=== PATIENT | female | born 1995 ===

== ENCOUNTER 2018-07-17 16:10 | Emergency (ER) | payer SELFPAY ==
--- NOTE | 2018-07-17 16:29 | C.PDOC ---
History Of Present Illness 22-year-old female presents to the ED for evaluation after she accidentally sustained a laceration to her left thumb prior to arrival. Patient states that she was cutting some vegetables at home, when she accidentally injured her left thumb. She notes the bleeding was controlled right away. Patient states she is up to date with her vaccinations, and last received a tetanus immunization around two years ago. Otherwise, she denies any other injuries, snuffbox tenderness, extremity numbness/weakness, or active bleeding at this time. Time Seen by Provider: 07/17/18 16:28 Chief Complaint (Nursing): Abnormal Skin Integrity History Per: Patient History/Exam Limitations: no limitations Onset/Duration Of Symptoms: Hrs Current Symptoms Are (Timing): Still Present Location Of Injury: Left: Hand (thumb) Additional History Per: Patient Past Medical History Reviewed: Historical Data, Nursing Documentation, Vital Signs Vital Signs: Last Vital Signs Temp 98.6 F 07/17/18 16:21 Pulse 95 H 07/17/18 16:21 Resp 18 07/17/18 16:21 BP 123/69 07/17/18 16:21 Pulse Ox 100 07/17/18 16:21 - Medical History PMH: No Chronic Diseases Surgical History: No Surg Hx Family History: States: Unknown Family Hx - Social History Hx Alcohol Use: Yes Hx Substance Use: No - Immunization History Hx Tetanus Toxoid Vaccination: No Hx Influenza Vaccination: No Hx Pneumococcal Vaccination: No Review Of Systems Constitutional: Negative for: Fever, Chills Eyes: Negative for: Pain ENT: Negative for: Ear Pain, Ear Discharge, Nose Congestion Cardiovascular: Negative for: Chest Pain, Palpitations Respiratory: Negative for: Cough, SOB with Excertion Gastrointestinal: Negative for: Nausea, Vomiting, Abdominal Pain Genitourinary: Negative for: Dysuria, Frequency, Incontinence, Hematuria, Vaginal Discharge Musculoskeletal: Negative for: Neck Pain, Shoulder Pain, Arm Pain, Back Pain, Hand Pain, Leg Pain, Foot Pain, Other (snuff box tenderness ) Skin: Positive for: Other (laceration to left thumb) Neurological: Negative for: Weakness, Numbness Physical Exam - Physical Exam Appears: Well, Non-toxic, No Acute Distress Skin: Normal Color, Warm, Dry, Other (1.5cm laceration to palmar aspect if left thumb, along lateral margin. no active bleeding ) Head: Atraumatic, Normacephalic Eye(s): bilateral: Normal Inspection Tongue: Normal Appearing Lips: Normal Appearing Teeth: Normal Dentition Throat: Normal, No Erythema Neck: Supple Cardiovascular: Rhythm Regular Respiratory: Normal Breath Sounds Gastrointestinal/Abdominal: Normal Exam Back: Normal Inspection, No CVA Tenderness Extremity: Normal ROM, Capillary Refill (less than 2 seconds ) Neurological/Psych: Oriented x3, Normal Speech, Normal Cognition ED Course And Treatment O2 Sat by Pulse Oximetry: 100 (on RA) Pulse Ox Interpretation: Normal Laceration - Laceration Repair left thumb Wound Length (In cm): 1.5 Description Of Wound: Linear Anesthesia: Lidocaine 1% Wound Examination: Irrigated With Saline, No FB With Wound Exploration, No Tendon Injury With Wound Exploration Wound Closure: Suture (two) Suture Technique And Material Used: Nylon (4-0) Wound Complexity: Simple Medical Decision Making Medical Decision Making: Impression: 22 year old female with left thumb laceration without tendon involvement. N/V intact distally and proximally. No other pain. No snuffbox pain Plan: * Tylenol PO * laceration repair * reassess and disposition Progress: Tylenol PO given. Laceration repair procedure: 1.5cm linear laceration to scruggs aspect of left thumb, along lateral margin. Local anesthesia achieved with 1% lidocaine without epinephrine. Wound irrigated with NS and explored. No FB seen. No tendon injury. Two 4-0 interrupted Ethilon sutures placed. Pt tolerated well with minimal bleeding. On reassessment, patient is resting comfortably, showing no signs of distress and is stable for discharge. Patient is given wound care instructions and advised to follow up for suture removal in 7-10 days. Disposition - Disposition Referrals: [facility] [Outside] [facility] [Outside] [facility] [Outside] Disposition: HOME/ ROUTINE Disposition Time: 17:55 Condition: GOOD Additional Instructions: RETURN TO THIS ED OR TO THE CLINIC FOR SUTURE REMOVAL IN 7-10 DAYS KYARA MCKEON, thank you for letting us take care of you today. Your provider was Alfredo Barboza and you were treated for LT FINGER LACERATION. The emergency medical care you received today was directed at your acute symptoms. If you were prescribed any medication, please fill it and take as directed. It may take several days for your symptoms to resolve. Return to the Emergency Department if your symptoms worsen, do not improve, or if you have any other problems. Please contact your doctor or call one of the physicians/clinics you have been referred to that are listed on the Patient Visit Information form that is included in your discharge packet. Bring any paperwork you were given at discharge with you along with any medications you are taking to your follow up visit. Our treatment cannot replace ongoing medical care by a primary care provider outside of the emergency department. Thank you for allowing the [facility] team to be part of your care today. If you had an X-Ray or CT scan: A Radiologist will review the ED reading if any change in treatment is needed we will contact you. If you had a blood, urine, or wound culture: It will take several days for the results, if any change in treatment is needed we will contact you. If you had an STI test: It will take 48 hours for the results. Please call after 1 week if you have not heard back. Instructions: Laceration Repair With Stitches (DC), Laceration (ED) Forms: [employer] (Russian) - Clinical Impression Clinical Impression: Skin laceration - Scribe Statement The provider has reviewed the documentation as recorded by the Scribe (Pat Rivera) Provider Attestation: All medical record entries made by the Scribe were at my direction and personally dictated by me. I have reviewed the chart and agree that the record accurately reflects my personal performance of the history, physical exam, medical decision making, and the department course for this patient. I have also personally directed, reviewed, and agree with the discharge instructions and disposition.
[2018-07-17] MEDS ORDERED: Lidocaine 1% Inj (20ml) INFIL STA (16:46)
[2018-07-17 16:49] VITALS: RESP 18; O2SAT 100
[2018-07-17] MEDS ORDERED: Lidocaine Hydrochloride 5 ML INJ ONE (16:52)
[2018-07-17] MEDS ORDERED: Bacitracin 500 Units/gm Oint Foilpak UD ONE (16:52)
[2018-07-17 17:56] VITALS: BP 110/76; PULSE 81; TEMP 98.4
== END 2018-07-17 18:00 | disposition home or self-care (01) ==
LOC: C.ER 16:10
DX: S61.012A Laceration without foreign body of left thumb without damage to nail, initial encounter (principal); W45.8XXA Other foreign body or object entering through skin, initial encounter